=== PATIENT | male | born 1935 | race Caucasian/White ===

== ENCOUNTER 2017-12-31 10:49 | Observation (INO) | payer OTHER, MEDICARE ==
[2017-12-29 12:51] VITALS: Ht 165.1 cm; Wt 72.7 kg
--- NOTE | 2017-12-29 13:27 | PAT Medication Instructions ---
Service Date Dec 29, 2017. Current Home Medication List Acetaminophen (Tylenol), 500 MG PO PRN Amlodipine (Norvasc), 5 MG PO QAM Aspirin (Aspirin Ec), 81 MG PO QAM Glimepiride (Glimepiride), 1 TAB PO QAM Levothyroxine Sodium (Levothyroxine Sodium), 1 TAB PO QAM Lisinopril (Zestril), 20 MG PO QAM Lovastatin (Mevacor), 40 MG PO QPM Metformin Hcl (Glucophage), 1,000 MG PO BID Omeprazole (Prilosec), 20 MG PO QAM Silodosin (Rapaflo), 1 CAP PO HS [Insulin Levemir], 25 UNITS SC HS [Lisinopril Hctz], 1 TAB PO QPM Medication Instructions For Your Scheduled Surgery - Hold the following medications per your surgeon's instructions: Aspirin (Aspirin Ec), 81 MG PO QAM - Hold the following medications the night before surgery: [Lisinopril Hctz], 1 TAB PO QPM - Hold the following medications the morning of surgery: Glimepiride (Glimepiride), 1 TAB PO QAM Metformin Hcl (Glucophage), 1,000 MG PO BID Lisinopril (Zestril), 20 MG PO QAM - Take the following medications the morning of surgery with a sip of water: Acetaminophen (Tylenol), 500 MG PO PRN (if needed, can be taken up to four hours before surgery) Amlodipine (Norvasc), 5 MG PO QAM Omeprazole (Prilosec), 20 MG PO QAM Levothyroxine Sodium (Levothyroxine Sodium), 1 TAB PO QAM - Take the following medications as scheduled the night before surgery: Acetaminophen (Tylenol), 500 MG PO PRN (if needed) Metformin Hcl (Glucophage), 1,000 MG PO BID Silodosin (Rapaflo), 1 CAP PO HS [Insulin Levemir], 25 UNITS SC HS Lovastatin (Mevacor), 40 MG PO QPM If you have any questions please call us at [phone] or [phone] or [phone]
--- NOTE | 2017-12-29 14:11 | DIAGNOSTIC IMAGING REPORT ---
CHEST 2 VIEWS ROUTINE HISTORY: 82 years-old Male PAT preoperative exam. No acute chest complaints. COMPARISON: CT abdomen and pelvis 11/09/2017 TECHNIQUE: PA and lateral views of the chest FINDINGS: Cardiomediastinal and hilar silhouettes are within normal limits. Atherosclerosis of the aorta. Biapical pleural thickening/pleural-parenchymal scarring is noted without pneumothorax, pleural effusion, focal airspace consolidation or overt pulmonary edema. The lungs are hyperinflated with emphysematous changes suggested. Probable calcific granulomas of the lateral right midlung. Degenerative changes are noted within the shoulders and spine. Cholecystectomy clips noted. IMPRESSION: No acute process of the chest. The above report was generated using voice recognition software. It may contain grammatical, syntax or spelling errors. Electronically signed by: Kolby Gómez M.D. 12/29/2017 2:10 PM Dictated Date/Time: 12/29/2017 2:08 PM
[2017-12-29 14:17] LABS: BASO % 0.7 %; BASO ABS # 0.06 K/uL (0-0.2); EOS % 4.9 %; EOS ABS # 0.44 K/uL (0-0.5); HEMATOCRIT 38.1 % (42-52); HEMOGLOBIN 12.6 g/dL (14.0-18.0); IG# 0.04 K/uL (0.00-0.02); LYMPH % 26.8 %; LYMPH ABS # 2.41 K/uL (1.2-3.4); MEAN CELL VOLUME 88.8 fL (80-100); MEAN CORPUSCULAR HEMOGLOBIN 29.4 pg (25-34); MEAN CORPUSCULAR HGB CONC 33.1 g/dl (32-36); MEAN PLATELET VOLUME 10.3 fL (7.4-10.4); MONO % 10.2 %; MONO ABS # 0.92 K/uL (0.11-0.59); NEUT ABS # 5.13 K/uL (1.4-6.5); PLATELET COUNT 240 K/uL (130-400); RED CELL DISTRIBUTION WIDTH CV 13.8 % (11.5-14.5)
[2017-12-29 14:23] LABS: CREATININE 1.32 mg/dl (0.60-1.40); POTASSIUM 3.9 mmol/L (3.5-5.1)
[2017-12-31] VITALS (8 sets, daily range): BP systolic 124–177; BP diastolic 64–85; PULSE 63–78; TEMP 36.4–36.9; O2SAT 95–100
[~2017-12-31] VITALS: Ht 165.1 cm; Wt 72.7 kg
[~2017-12-31 10:49] MED LIST: ACET-1256 PO; AMLO-110 PO; ASPI81TA28 PO; ATROPINE SULFATE 0.1 MG/ML 5ML SYR IV PRN; CIPROFLOXACIN / D5W 400 MG IV SCH; EpHEDrine SULFATE INJ 50 MG/ML AMP IV PRN; GLIM4TAB2 PO; HYDROmorphone INJ 2 MG/ML SYR/VIAL IV PRN; INSULIN LEVEMIR SC; LACTATED RINGER'S 1000ML 1,000 ML IV SCH; LEVO88TA3 PO; LISI-725 PO; LISINOPRIL HCTZ PO; LOVA40TA4 PO; METF-384 PO; ONDANSETRON INJ 2 MG/ML 2 ML VIAL IV PRN; PHENYLEPHRINE 100MCG/ML 5ML SYR IV PRN; PRLSR20 PO; SILO8CAP PO
--- NOTE | 2017-12-31 12:10 | History & Physical Bridge Note ---
H&P Re-Evaluation Bridge Note: I have examined the patient, reviewed the History & Physical and in the interval since the performance of the History & Physical I have noted the following changes of clinical significance: No changes noted
[2017-12-31] MEDS ORDERED: PROPOFOL IV EMULSION 10 MG/ML 20 ML VIAL IV ONE (12:50)
[2017-12-31] MEDS ORDERED: LIDOCAINE HCL 2% 2 ML VIAL (20MG/ML) ONE (12:50)
[2017-12-31] MEDS ORDERED: ONDANSETRON INJ 2 MG/ML 2 ML VIAL ONE (12:50)
[2017-12-31] MEDS ORDERED: MIDAZOLAM HCL 1 MG/ML 2ML VIAL ONE (12:50)
[2017-12-31] MEDS ORDERED: FENTANYL CITRATE INJ 50 MCG/1 ML 2 ML VIAL ONE (12:51)
[2017-12-31] MEDS ORDERED: DEXAMETHASONE SOD INJ 4 MG/ML VIAL ONE (13:20)
[2017-12-31] MEDS ORDERED: Cysto-Conray II 17.2% 250ML BOTTLE ONE (13:25)
[2017-12-31] MEDS ORDERED: WATER, STERILE FOR INJ 10 ML VIAL ONE (13:36)
[2017-12-31] MEDS ORDERED: EpHEDrine SULFATE INJ 50 MG/ML AMP ONE (13:36)
[2017-12-31] MEDS ORDERED: GLYCOPYRROLATE INJ 0.2 MG/ML VIAL ONE (13:56)
[2017-12-31] MEDS ORDERED: NEOSTIGMINE METHYLSULFATE 5 MG/5 ML SYR ONE (13:56)
[2017-12-31] MEDS ORDERED: ROCURONIUM BROMIDE 10 MG/ML 5 ML VIAL IV ONE ×2 (13:56→14:33)
[2017-12-31] MEDS ORDERED: BELLADONNA/OPIUM SUPP 60 MG SUPP PR ONE (14:48)
--- NOTE | 2017-12-31 14:53 | [facility] Post Operative Brief Note ---
Immediate Operative Summary Operative Date Dec 31, 2017. Pre-Operative Diagnosis Multifocal bladder tumors Post-Operative Diagnosis Multifocal bladder tumors Procedure(s) Performed Cystoscopy, Left Retrograde Pyelograpy, Left Ureteral Stent Placement, Transuretheral Resection Prostate, Transuretheral Resection Bladder Tumor, Button Fulguration of Bladder Surgeon Dr. Mayra Chan Golf Cart Attendant Surgeon(s) none Estimated Blood Loss 50 cc Findings Consistent with Post-Op Diagnosis Specimens A: prostate chips B: bladder neck tumor C: posterior bladder tumor D: anterior bladder tumor E: right lateral tumor Drains [address] guadalupe to CBI, 10 cc H2O Anesthesia Type General Complication(s) none Disposition Accompanied Pt To Recover: no Disposition: Recovery Room / PACU
[2017-12-31] MEDS ORDERED: ONDANSETRON INJ 2 MG/ML 2 ML VIAL IV PRN (15:15)
[2017-12-31] MEDS ORDERED: ACETAMINOPHEN 325 MG TAB PO PRN (15:15)
[2017-12-31] MEDS ORDERED: PHENAZOPYRIDINE HCL 200 MG TAB PO PRN (15:15)
[2017-12-31] MEDS ORDERED: OXYCODONE/ACETAMINOPHEN 5-325 TAB PO PRN ×2 (15:15)
[2017-12-31] MEDS ORDERED: HYDROmorphone INJ 1 MG/ML SYR IV PRN ×2 (15:15)
--- NOTE | 2017-12-31 15:31 | [facility] Operative Report ---
Operative Report Operative Date Dec 31, 2017. Pre-Operative Diagnosis Multifocal bladder tumors Post-Operative Diagnosis Multifocal bladder tumors Procedure(s) Performed Cystoscopy, Left Retrograde Pyelograpy, Left Ureteral Stent Placement, Transuretheral Resection Prostate, Transuretheral Resection Bladder Tumor, Button Fulguration of Bladder Surgeon Dr. Mayra Chan Precision Lens Technician Surgeon(s) none Estimated Blood Loss 50 cc Findings Abnormal, papillary mucosa encompassing over one half of the patient's intravesical volume, tumor at the left ureteral orifice fulgurated and left ureteral stent in good position on fluoroscopy, no obvious areas of residual tumor identified. Specimens A: prostate chips B: bladder neck tumor C: posterior bladder tumor D: anterior bladder tumor E: right lateral tumor Drains [address] guadalupe to CBI, 10 cc H2O Anesthesia Type General Complication(s) none Disposition no Recovery Room / PACU Indications 82-year-old male with multifocal bladder tumors consistent with urothelial malignancy who is coming in today for resection of his disease. Intravenous ciprofloxacin was provided for antibiotic coverage and SCDs used for DVT prophylaxis. Please see H&P for further details. Description of Procedure Patient was properly identified and brought into the operative suite after identification of appropriate consent in the chart. General anesthesia with endotracheal intubation was initiated and patient was prepped and draped in standard fashion for this procedure. Full timeout procedure was followed. Rigid cystoscope was introduced into the bladder under direct visualization demonstrating a prostatic urethra with clear evidence of papillary tumor throughout its entire length. Within the bladder tumor was present with the least burden being present on the right-hand side although no aspect of the bladder was spared. Majority of these tumors were noted to be relatively small with sheets of papillary mucosa consistent with urothelial malignancy. Overall well over one half of the bladder was involved if not closer to two thirds. The right-sided ureteral orifice was thankfully spared but the left-sided ureteral orifice was encased in abnormal mucosa. Unfortunately, attempts at placing a stent on this side were hampered by the friable tumor and bleeding from the level of the prostate and bladder. Decision was made to proceed with a TURP prior to attempts at placing a left ureteral stent. Circumferential resection of the abnormal tissue of the prostate was undertaken and prostate chips were flushed into the bladder and then through the scope. These were sent as a separate specimen. Bipolar button was used to fulgurate the prostatic fossa circumferentially for improved hemostasis. Bleeding tumor at the bladder neck was also fulgurated to allow for visualization of the left ureteral orifice. Rigid cystoscope was then reintroduced and the left ureteral orifice was able to be cannulated using an angled sensor tip wire. Open-ended catheter was placed into the distal ureter and retrograde pyelography was performed demonstrating no ureteral dilation, filling defects or other worrisome findings. Sensor tip was advanced to the level of the renal pelvis followed by a 6 [place] multilength ureteral stent with a double coil being present within the bladder and redundant stent within the kidney on fluoroscopy. The cystoscope was removed and resectoscope was reintroduced using a visual obturator. Tumor was resected from maintenance representative areas and sent labeled depending on its area of origin. Some thinning of the bladder wall at several sites of resection was noted without lexi perforation. Patient was paralyzed to avoid the risk of obturator reflex. After this was complete bipolar button was used to fulgurate areas of abnormal mucosa throughout the bladder. Hemostasis was also achieved in areas of prior resection within the prostatic fossa. After lengthy intervention no clearly abnormal visible tumor was residual within the bladder. All areas of abnormal mucosa to the degree possible were felt to be well fulgurated. Bladder was partially distended and resectoscope was removed. 26 [address] Guadalupe catheter was placed with 10 cc of sterile water in balloon and return of light pink urine. CBI was started. Belladonna and opium suppository was provided for additional postoperative analgesia. Anesthesia was reversed patient was transferred to the recovery room in stable condition. Follow-up CARE: Patient will be admitted to the floor for postoperative management and CBI. I attest to the content of the Intraoperative Record and any orders documented therein. Any exceptions are noted below.
[2017-12-31] MEDS ORDERED: PHARMACY GLYCEMIC MGMT CONSULT STA (15:35)
--- NOTE | 2017-12-31 15:44 | Anesthesiology Progress Note ---
Anesthesia Post Op Note Date & Time Dec 31, 2017 at 15:44 Vital Signs Pain Intensity: 0 Vital Signs Past 12 Hours Date Time Temp Pulse Resp B/P (MAP) Pulse Ox O2 Delivery O2 Flow Rate FiO2 12/31/17 15:35 36.2 74 16 160/75 100 Nasal Cannula 2 Oxymask 12/31/17 15:25 74 16 165/68 100 Oxymask 5 12/31/17 15:15 85 16 179/79 100 Oxymask 10 12/31/17 15:09 36.4 92 16 181/81 100 Oxymask 10 12/31/17 11:20 36.7 78 17 124/83 (97) 97 Room Air Notes Mental Status: alert / awake / arousable, participated in evaluation Pt Amnestic to Procedure: Yes Nausea / Vomiting: adequately controlled Pain: adequately controlled Airway Patency, RR, SpO2: stable & adequate BP & HR: stable & adequate Hydration State: stable & adequate Anesthetic Complications: no major complications apparent
[2017-12-31] MEDS ORDERED: PHARMACY GLYCEMIC MGMT CONSULT SCH (15:57)
--- NOTE | 2017-12-31 16:11 | Pharmacy Progress Note ---
Glycemic Control Intl Consult Date of Service Dec 31, 2017. Scope Glycemic Pharmacist consulted by Dr Chan on 12/31/17 for glycemic control and to write orders per [facility] inpatient glycemic control protocol Objective Weight (Kilograms): 72.7 Accuchecks BSG (last 24hrs): Test 12/31/17 11:29 12/31/17 15:25 Bedside Glucose 139 mg/dl (70-99) 125 mg/dl (70-99) Recent Pertinent Medications Outpatient Anti-diabetic Regimen: * Levemir 25 units SQ HS * Metformin 1g PO BID * Amaryl 4mg PO Daily * A1c ordered with AM Labs Risk Factors for Insulin Resistance: * Steroids: Dexamethasone 4mg IV x1 in OR * Recent Surgery: s/p transurethral resection of bladder tumor * Diet:Type 2 DM Assessment & Plan ASSESSMENT: * 82 year old male, s/p transurethral resection of bladder tumor, managed on Levemir and oral agents as outpatient Type 2 diabetic * Oral agents are not recommended for inpatient use d/t drug interactions, changing PO intake, and difficulty titrating for acute hyper/hypoglycemia. ADA recommends re-initiating outpatient oral agents 1-2 days prior to discharge if/ when appropriate if they were held on admission. * Will hold oral agents for admission and utilize SQ basal bolus insulin regimen which is the recommended regimen for inpatient glycemic control. * Due to IV Dexamethasone, will give extra dose of Levemir now and start with tight Novolog parameters and loosen as steroids wear off PLAN FOR INPATIENT GLYCEMIC CONTROL: * Holding outpatient oral diabetes medications * Basal insulin with LEVEMIR * 18 units SQ x 1 dose NOW and * 25 units SQ HS * Correctional Insulin with NOVOLOG per scale ACHS or Q6hrs while NPO and overnight at 0000 and 0400 * Goal Range: Low 120 mg/dL - High 150 mg/dL * Correction Factor: 20 mg/dL/unit * Nutritional / Prandial insulin per carb ratio of 1 unit per 7 grams CHO consumed * Please note that the plan above was derived based on current level of insulin resistance and hospital stress. These recommendations are appropriate for inpatient admission only. Plan of care upon discharge will need to be reassessed to avoid potential outpatient hypo/hyperglycemia. Thank you.
[2017-12-31] MEDS ORDERED: GLUCOSE 40% GEL 15 GM TUBE PO PRN (16:15)
[2017-12-31] MEDS ORDERED: GLUCOSE 10 TABS/TUBE PO PRN (16:15)
[2017-12-31] MEDS ORDERED: GLUCAGON FOR INJ 1 MG VIAL SQ PRN (16:15)
[2017-12-31] MEDS ORDERED: DEXTROSE 50% 50 ML SYR IV PRN (16:15)
[2017-12-31] MEDS ORDERED: INSULIN DETEMIR FLEXPEN/FLEX TOUCH 100 UNITS/ML 3ML SC ONE (16:30)
[2017-12-31] MEDS: LACTATED RINGER'S 1000ML 1,000 ML IV SCH (16:44)
[2017-12-31] MEDS ORDERED: IV FLUIDS COMPLETED PRN (17:15)
--- NOTE | 2017-12-31 18:08 | Progress Note ---
Progress Note Date of Service Dec 31, 2017. Progress Note PM rounds: Patient resting in bed, taking regular diet. Feels well. Urine clear pink on fast CBI - slowed. NAD Good respiratory excursion. S1 S2 Soft, ND, NT A/P 82 yo male POD#0 s/p TURBT, TURP, L stent. Intraop findings reviewed. CBI overnight, labs in AM. Possible DC with guadalupe tomorrow.
[2017-12-31] MEDS: INSULIN ASPART 100 UNITS/ML 3 ML PEN SC SCH ×2 (18:43→20:39)
[2017-12-31] MEDS: CIPROFLOXACIN / D5W 400 MG in PREMIXED IN D5W 0 ML IV SCH (20:21)
[2017-12-31] MEDS: DOCUSATE SODIUM 100 MG CAP PO SCH (20:25)
[2017-12-31] MEDS ORDERED: LOVASTATIN 20 MG TAB PO SCH (21:00)
[2017-12-31] MEDS ORDERED: INSULIN DETEMIR FLEXPEN/FLEX TOUCH 100 UNITS/ML 3ML SC SCH (21:00)
--- NOTE | 2017-12-31 21:43 | DIAGNOSTIC IMAGING REPORT ---
RETROGRADE INCLUDES KUB CLINICAL HISTORY: 82 years-old Male presenting with RETROGRADE. TECHNIQUE: 4 fluoroscopic spot image(s) obtained as part of an intraoperative procedure. COMPARISON: CT from 11/09/2017. FINDINGS/IMPRESSION: A catheter was introduced into the distal left ureter, which was opacified with contrast. Subsequently, a ureteral stent was placed. Please see surgical report for further details. Fluoroscopy dosage (mGy): Not available. Fluoroscopy time: 24 seconds. Number of fluoroscopic spot images: 4. Electronically signed by: Jefe Sanabria M.D. 12/31/2017 9:41 PM Dictated Date/Time: 12/31/2017 9:40 PM
[2018-01-01] MEDS: INSULIN ASPART 100 UNITS/ML 3 ML PEN SC SCH ×4 (00:23→13:59)
[2018-01-01] MEDS: LACTATED RINGER'S 1000ML 1,000 ML IV SCH ×2 (03:07→13:02)
[2018-01-01 03:56] VITALS: BP 132/55; PULSE 66; TEMP 36.7; O2SAT 96
[2018-01-01] MEDS ORDERED: LEVOTHYROXINE 88 MCG TAB PO SCH (06:00)
[2018-01-01 07:17] LABS: BASO % 0.2 %; BASO ABS # 0.02 K/uL (0-0.2); EOS % 0.5 %; EOS ABS # 0.05 K/uL (0-0.5); HEMATOCRIT 37.6 % (42-52); HEMOGLOBIN 12.6 g/dL (14.0-18.0); IG# 0.03 K/uL (0.00-0.02); LYMPH % 16.5 %; LYMPH ABS # 1.83 K/uL (1.2-3.4); MEAN CELL VOLUME 89.1 fL (80-100); MEAN CORPUSCULAR HEMOGLOBIN 29.9 pg (25-34); MEAN CORPUSCULAR HGB CONC 33.5 g/dl (32-36); MEAN PLATELET VOLUME 10.4 fL (7.4-10.4); MONO % 13.4 %; MONO ABS # 1.49 K/uL (0.11-0.59); NEUT % 69.1 %; NEUT ABS # 7.68 K/uL (1.4-6.5); PLATELET COUNT 211 K/uL (130-400); RED CELL DISTRIBUTION WIDTH CV 13.9 % (11.5-14.5); RED CELL DISTRIBUTION WIDTH SD 45.4 fL (36.4-46.3)
[2018-01-01 07:21] VITALS: BP 169/68; PULSE 73; TEMP 36.6; O2SAT 98
[2018-01-01 07:47] LABS: CALCIUM 8.8 mg/dl (8.5-10.1); CREATININE 1.24 mg/dl (0.60-1.40); POTASSIUM 4.1 mmol/L (3.5-5.1)
--- NOTE | 2018-01-01 08:08 | Progress Note ---
Subjective Date of Service: Jan 01, 2018. Subjective Pt evaluation today including: conversation w/ patient, physical exam, chart review, lab review, review of inpatient medication list Pain: Controlled, minimal PO Intake: Damien reg diet Voiding: guadalupe catheter in place (urine light pink with moderate CBI) 82 yo male POD#1 s/p TURBT, TURP. He notes little ambulation yesterday, no complaints or difficulties with guadalupe. AM labs noted, no worrisome findings. Intraop findings reviewed. Review of Systems Constitutional: No fever, No chills Eyes: No worsening of vision ENT: No hearing loss Respiratory: No sputum, No wheezing, No shortness of breath Cardiac: No chest pain Abdomen: No nausea, No vomiting Male : + see HPI, + hematuria Neurologic: No memory loss, No paralysis Psychiatric: No depression symptoms Heme: + abnormal bleeding/bruising Endo: No fatigue Skin: No new/changing skin lesions Objective Vital Signs Date Time Temp Pulse Resp B/P (MAP) Pulse Ox O2 Delivery O2 Flow Rate FiO2 01/01/18 07:30 Room Air 01/01/18 07:21 36.6 73 16 169/68 (101) 98 Room Air 01/01/18 03:56 36.7 66 16 132/55 (80) 96 Room Air 12/31/17 23:55 Room Air 12/31/17 23:00 36.6 66 16 147/71 (96) 97 Room Air 12/31/17 20:32 36.8 70 16 171/73 (105) 98 Room Air 12/31/17 18:53 36.7 69 16 162/75 (104) 96 Room Air 12/31/17 18:07 36.9 71 16 156/67 (96) 95 Room Air 12/31/17 16:55 36.4 63 16 166/71 (102) 100 Nasal Cannula 2.0 12/31/17 16:26 36.4 63 16 177/64 (101) 100 Nasal Cannula 2.0 12/31/17 16:00 Nasal Cannula 2.0 12/31/17 16:00 Nasal Cannula 2.0 12/31/17 15:55 36.5 69 16 165/85 (111) 98 Nasal Cannula 2.0 12/31/17 15:45 71 16 156/69 100 Nasal Cannula 2 Oxymask 3/1/18 15:35 36.2 74 16 160/75 100 Nasal Cannula 2 Oxymask 12/31/17 15:25 74 16 165/68 100 Oxymask 5 12/31/17 15:15 85 16 179/79 100 Oxymask 10 12/31/17 15:09 36.4 92 16 181/81 100 Oxymask 10 12/31/17 11:20 36.7 78 17 124/83 (97) 97 Room Air Physical Exam General Appearance: WD/WN, no apparent distress ENT: normal ENT inspection, hearing grossly normal Neck: supple, no adenopathy Respiratory/Chest: no respiratory distress, no accessory muscle use Cardiovascular: no JVD Abdomen: non tender, soft Extremities: non-tender Neurologic/Psychiatric: alert, oriented x 3 Skin: normal color Laboratory Results Last 24 Hours Test 12/31/17 11:29 12/31/17 15:25 12/31/17 17:17 12/31/17 20:30 Bedside Glucose 139 mg/dl 125 mg/dl 129 mg/dl 206 mg/dl Test 01/01/18 00:03 01/01/18 03:35 01/01/18 06:47 Bedside Glucose 199 mg/dl 166 mg/dl White Blood Count 11.10 K/uL Red Blood Count 4.22 M/uL Hemoglobin 12.6 g/dL Hematocrit 37.6 % Mean Corpuscular Volume 89.1 fL Mean Corpuscular Hemoglobin 29.9 pg Mean Corpuscular Hemoglobin Concent 33.5 g/dl Platelet Count 211 K/uL Mean Platelet Volume 10.4 fL Neutrophils (%) (Auto) 69.1 % Lymphocytes (%) (Auto) 16.5 % Monocytes (%) (Auto) 13.4 % Eosinophils (%) (Auto) 0.5 % Basophils (%) (Auto) 0.2 % Neutrophils # (Auto) 7.68 K/uL Lymphocytes # (Auto) 1.83 K/uL Monocytes # (Auto) 1.49 K/uL Eosinophils # (Auto) 0.05 K/uL Basophils # (Auto) 0.02 K/uL RDW Standard Deviation 45.4 fL RDW Coefficient of Variation 13.9 % Immature Granulocyte % (Auto) 0.3 % Immature Granulocyte # (Auto) 0.03 K/uL Sodium Level 140 mmol/L Potassium Level 4.1 mmol/L Chloride Level 105 mmol/L Carbon Dioxide Level 27 mmol/L Anion Gap 7.0 mmol/L Blood Urea Nitrogen 16 mg/dl Creatinine 1.24 mg/dl Est Creatinine Clear Calc Drug Dose 41.3 ml/min Estimated GFR () 63.2 Estimated GFR (Non- 54.6 BUN/Creatinine Ratio 12.5 Random Glucose 150 mg/dl Calcium Level 8.8 mg/dl Assessment and Plan A/P 82 yo male POD#1 s/p TURP and TURBT. Will increase diet and activity today. Ambulate in halls. CBI stopped - will recheck later. If urine acceptable, will DC home with guadalupe in place. Outpatient TOV, stent removal and pathology discussion at scheduled visit. Limitations reviewed. Discharge planning: home
[2018-01-01 08:13] LABS: HEMOGLOBIN A1C 8.2 % (4.5-5.6)
--- NOTE | 2018-01-01 08:28 | Anesthesiology Progress Note ---
Anesthesia Post Op Note Date & Time Jan 01, 2018 at 08:28 Vital Signs Pain Intensity: 0.0 Vital Signs Past 12 Hours Date Time Temp Pulse Resp B/P (MAP) Pulse Ox O2 Delivery O2 Flow Rate FiO2 01/01/18 07:30 Room Air 01/01/18 07:21 36.6 73 16 169/68 (101) 98 Room Air 01/01/18 03:56 36.7 66 16 132/55 (80) 96 Room Air 12/31/17 23:55 Room Air 12/31/17 23:00 36.6 66 16 147/71 (96) 97 Room Air 12/31/17 20:32 36.8 70 16 171/73 (105) 98 Room Air Notes Mental Status: alert / awake / arousable, participated in evaluation Pt Amnestic to Procedure: Yes Nausea / Vomiting: adequately controlled Pain: adequately controlled Airway Patency, RR, SpO2: stable & adequate BP & HR: stable & adequate Hydration State: stable & adequate Anesthetic Complications: no major complications apparent
[2018-01-01] MEDS ORDERED: LISINOPRIL 20 MG TAB PO SCH (09:00)
[2018-01-01] MEDS ORDERED: AMLODIPINE BESYLATE 5 MG TAB PO SCH (09:00)
[2018-01-01] MEDS: DOCUSATE SODIUM 100 MG CAP PO SCH (09:23)
[2018-01-01] MEDS: CIPROFLOXACIN / D5W 400 MG in PREMIXED IN D5W 0 ML IV SCH (09:24)
--- NOTE | 2018-01-01 10:44 | Pharmacy Progress Note ---
Pharmacy Glycemic Short Note 2 Date of Service Jan 01, 2018. OUTPATIENT ANTIDIABETIC REGIMEN: * Levemir 25 units SQ HS * Metformin 1g PO BID * Amaryl 4mg PO Daily * A1c = 8.2% on 01/01/18 ASSESSMENT: * 82yo T2DM male s/p TURP. Pt with adequate outpatient glycemic control per recent A1c based on age/comorbidities and elements of diabetes care scoring scale. * Tight glycemic control crucial for post-op healing. Recommended to maintain all BSGs <200 mg/dl; ideally target glucose levels ~ 150 mg/dl or below. * Pt is currently receiving SQ basal bolus insulin regimen post-operatively while outpatient oral agents are on hold for inpatient admission. * Pt ordered outpatient dose of basal insulin + supplemental dose to cover longstanding hyperglycemia resulting from dexamethasone given in OR * BSGs over the past 24hrs are: 125, 206, 199, 166, 145 * No changes needed to regimen at this time. Will continue outpatient dosing of basal insulin + Novolog weight based SSI. PLAN FOR INPATIENT GLYCEMIC CONTROL: * Hold outpatient oral diabetes medications * May resume at discharge * Basal insulin * Levemir 25 units SQ HS * Bolus insulin * NovoLog per scale ACHS or Q6hrs while NPO * Goal Range: Low 120 mg/dL - High 150 mg/dL * Correction Factor: 20 mg/dL/unit * Nutritional / Prandial insulin per carb ratio of 1 unit per 7 grams CHO consumed
[2018-01-01] MEDS ORDERED: HYDR-5688 PO (13:01)
[2018-01-01] MEDS ORDERED: DOCU-94 PO (13:01)
[2018-01-01] MEDS ORDERED: CIPR1TAB10 PO (13:01)
[2018-01-01 13:03] VITALS: BP 169/68; PULSE 73; TEMP 36.6; O2SAT 98
--- NOTE | 2018-01-01 13:06 | Discharge Instructions ---
Discharge Instructions Date of Service Jan 01, 2018. Admission Reason for Admission: Bladder Tumor Discharge Discharge Diagnosis / Problem: Bladder tumor Discharge Goals Goal(s): Decrease discomfort Activity Recommendations Activity Limitations: as noted below Lifting Limitations: no more than 10 pounds (x 2 weeks ) Exercise/Sports Limitations: rest today, until after follow-up appointment ( Light activty x 2 weeks. No heavy lifting or exercise. ) Shower/Bathe: no limitations (No tub baths until guadalupe catheter moved. OK to shower. ) Driving or Machine Use: resume 3 days after discharge (Do not drive while taking narcotics. ) . Instructions / Follow-Up Instructions / Follow-Up 1. You may resume taking Aspirin when urine is clear. 2. Follow up as scheduled. Please call the office at [phone] if you need to reschedule for any reason. Current Hospital Diet Patient's current hospital diet: Diabetes Type 2 Diet Discharge Diet Recommended Diet: Regular Diet Procedures Procedures Performed: Cystoscopy, Left Retrograde Pyelograpy, Left Ureteral Stent Placement, Transuretheral Resection Prostate, Transuretheral Resection Bladder Tumor, Button Fulguration of Bladder Pending Studies Studies pending at discharge: yes List of pending studies: bladder and prostate pathology Laboratory Results Hemoglobin A1c Test 01/01/18 06:47 Range/Units Estimated Average Glucose 189 mg/dl Hemoglobin A1c 8.2 H 4.5-5.6 % Medical Emergencies . Who to Call and When: Medical Emergencies: If at any time you feel your situation is an emergency, please call 911 immediately. . Non-Emergent Contact Non-Emergency issues call your: Urologist Call Non-Emergent contact if: temperature is above 101.5, your pain is not controlled, your pain is worsening, your pain is unusual for you, your pain is concerning you, you have any medication questions . . "Provider Documentation" section prepared by Rin Noonan. . [place] Drug Monitoring Program Search Results: patient reviewed within database, no issues identified
== END 2018-01-01 14:08 | disposition home or self-care (01) ==
LOC: C.ACU 10:49 → C.MSW 11:32 → ENRESERV 15:33
PROVIDERS: ADMIT Urology; ATTEND Urology
DX: C67.9 Malignant neoplasm of bladder, unspecified (principal); N40.1 Benign prostatic hyperplasia with lower urinary tract symptoms; N13.8 Other obstructive and reflux uropathy; R31.0 Gross hematuria; J44.9 Chronic obstructive pulmonary disease, unspecified; I10 Essential (primary) hypertension; E11.9 Type 2 diabetes mellitus without complications; Z79.899 Other long term (current) drug therapy; Z90.49 Acquired absence of other specified parts of digestive tract; Z87.891 Personal history of nicotine dependence; Z83.3 Family history of diabetes mellitus; Z82.49 Family history of ischemic heart disease and other diseases of the circulatory system; Z80.9 Family history of malignant neoplasm, unspecified; Z80.0 Family history of malignant neoplasm of digestive organs

== ENCOUNTER 2020-07-30 07:00 | Observation (INO) ==
--- NOTE | 2020-07-20 10:39 | Anesthesiology Consultation ---
Date of Service July 20, 2020 Assessment & Plan Chart Review Chart Review: Acceptable Risk for Surgery and Patient NOT seen in Pre Admission Testing Consults Requested none ASA ASA4 Proposed Anesthesia Anesthesia Type: General History Surgery Operation Date: 07/30/20 09:45 Proposed Procedures p Transurethral Resection of the Prostate - Tae Barcenas, Height/Weight Height: 5 ft 6 in Weight: 68.039 kg Allergies Allergy/AdvReac Type Severity Reaction Status Date / Time Flomax CAPS Allergy Unknown LIGHT Uncoded 07/20/20 10:00 HEADED DIZZY Medications Home Medications Medication Instructions Recorded Confirmed Last Taken finasteride 5 mg tablet 5 mg PO QAM #90 tab 06/27/19 07/20/20 Unknown levothyroxine 175 mcg tablet 88 mcg PO QAM tab 06/27/19 07/20/20 Unknown lisinopril 20 mg tablet 20 mg PO QAM tab 06/27/19 07/20/20 Unknown lovastatin 40 mg tablet 40 mg PO QPM tab 06/27/19 07/20/20 Unknown metformin 1,000 mg tablet 1,000 mg PO BID tab 06/27/19 07/20/20 Unknown omeprazole 20 mg tablet,delayed 20 mg PO QAM tab 06/27/19 07/20/20 Unknown release insulin detemir U-100 [Levemir 25 unit SUBCUT HS 05/31/20 07/20/20 Unknown U-100 Insulin] lisinopril-hydrochlorothiazide 1 tab PO QPM 05/31/20 07/20/20 Unknown canagliflozin [Invokana] 100 mg PO QAM 07/20/20 07/20/20 Unknown Past Medical History Medical History Bladder tumor BPH (benign prostatic hyperplasia) Diabetes mellitus, type 2 IDDM GERD (gastroesophageal reflux disease) Hypertension Hypothyroidism Lung calcification several > this procedure was on hold due to this > saw Dr. Miguel Ángel Marcum in [place] Jul 02, 2020> was cleared for surgery Prostate cancer AND BLADDER Exercise / Class Metabolic Activity III < 4 Walking/Shop/Light housework Past Family History Family History Sister Diabetes Liver cancer Mother Diabetes Hypertension Past Surgical History Surgical History History of cardiac cath 15 YRS AGO-NO STENTS PLACED S/P ankle fusion LEFT S/P cholecystectomy S/P TURP AND TURBT Past Anesthesia History No Hx of Anesthesia Complications and No Family Hx of Anesthesia Complications History of PONV No Hx of PONV and No Hx of Motion Sickness Social History Smoking Status: Former smoker Do You Dip or Chew Tobacco: No Smoking End Date: 15 yrs ago Hx Alcohol Use: No Hx Substance Use: No Testing Electrocardiogram Date: 06/05/20 Findings: + NSR @ (@ 69;w/ premature SVC's) and + RBBB Chest X-Ray Date: 06/05/20 Findings: + NAD, + atherosclerosis of thoracic aorta and + other (C/w emphysema)
[2020-07-25 10:42] LABS: Appearance Urine Clear (Clear); Bacteria Urine Automated Negative (Negative); Bilirubin Urine Negative (Negative); Blood Urine Negative (Negative); Color Urine Yellow; Glucose Urine UA Negative (Negative); Ketones Urine Negative (Negative); Leukocyte Esterase Urine Trace (Negative); Nitrite Urine Negative (Negative); Protein Urine Negative (Negative); RBC Urine Automated 0-4 /hpf (0-4); Specific Gravity Urine 1.022 (1.000-1.030); Urobilinogen Urine Negative (Negative)
[~2020-07-30 07:00] MED LIST changes: -ACET-1256 PO; -AMLO-110 PO; -ASPI81TA28 PO; -ATROPINE SULFATE 0.1 MG/ML 5ML SYR IV PRN; -CIPROFLOXACIN / D5W 400 MG IV SCH; +CIPROFLOXACIN / D5W 400 MG/200 ML BAG IV SCH; -EpHEDrine SULFATE INJ 50 MG/ML AMP IV PRN; -GLIM4TAB2 PO; -HYDROmorphone INJ 2 MG/ML SYR/VIAL IV PRN; -INSULIN LEVEMIR SC; +LACTATED RINGER'S 1,000 ML IV SCH; -LACTATED RINGER'S 1000ML 1,000 ML IV SCH; -LEVO88TA3 PO; -LISI-725 PO; -LISINOPRIL HCTZ PO; -LOVA40TA4 PO; -METF-384 PO; -ONDANSETRON INJ 2 MG/ML 2 ML VIAL IV PRN; -PHENYLEPHRINE 100MCG/ML 5ML SYR IV PRN; -PRLSR20 PO; -SILO8CAP PO
--- NOTE | 2020-07-30 07:10 | History & Physical Report ---
Date of Service July 30, 2020 Assessment & Plan (1) Malignant tumor of urinary bladder: (2) Gross hematuria: (3) BPH with obstruction/lower urinary tract symptoms: Risks and benefits discussed at length for procedure. These include bleeding, infection, injury to surrounding tissues or organs, and risks associated with anesthesia. Patient states understanding and agrees to proceed. Will sign consent and schedule. Severe obstruction with bladder cancer and bothersome issues. Plan for Transurethral Resection of Prostate. History of Present Illness Primary Care Provider: Candelario Erickson DO Patient here for procedure. No changes in medical issues. No major changes in urinary issues. Continued issues and concerns. No change in pain or discomfort. No severe fevers or chills. No chest pain or shortness of breath. Risks and benefits discussed at length for procedure. These include bleeding, infection, injury to surrounding tissues or organs, and risks associated with anesthesia. Patient and/or family states understanding and agrees to proceed. Consent and supporting information completed. Allergies Allergy/AdvReac Type Severity Reaction Status Date / Time Flomax CAPS Allergy Unknown LIGHT Uncoded 07/20/20 10:00 HEADED DIZZY Home Medications Home Medications Medication Instructions Recorded Confirmed Type finasteride 5 mg tablet 5 mg PO QAM #90 tab 06/27/19 07/20/20 History levothyroxine 175 mcg tablet 88 mcg PO QAM tab 06/27/19 07/20/20 History lisinopril 20 mg tablet 20 mg PO QAM tab 06/27/19 07/20/20 History lovastatin 40 mg tablet 40 mg PO QPM tab 06/27/19 07/20/20 History metformin 1,000 mg tablet 1,000 mg PO BID tab 06/27/19 07/20/20 History omeprazole 20 mg tablet,delayed 20 mg PO QAM tab 06/27/19 07/20/20 History release insulin detemir U-100 [Levemir 25 unit SUBCUT HS 05/31/20 07/20/20 History U-100 Insulin] lisinopril-hydrochlorothiazide 1 tab PO QPM 05/31/20 07/20/20 History canagliflozin [Invokana] 100 mg PO QAM 07/20/20 07/20/20 History Past Med/Surg History Medical History Bladder tumor BPH (benign prostatic hyperplasia) Diabetes mellitus, type 2 IDDM GERD (gastroesophageal reflux disease) Hypertension Hypothyroidism Lung calcification several > this procedure was on hold due to this > saw Dr. Miguel Ángel Marcum in [place] Jul 02, 2020> was cleared for surgery Prostate cancer AND BLADDER Surgical History History of cardiac cath 15 YRS AGO-NO STENTS PLACED S/P ankle fusion LEFT S/P cholecystectomy S/P TURP AND TURBT Family History Sister Diabetes Liver cancer Mother Diabetes Hypertension Social History Smoking Status: Former smoker Smoking End Date: 15 yrs ago; Second Hand Exposure: Yes (son); Do You Dip or Chew Tobacco: No; Hx Alcohol Use: No Hx Substance Use: No Preferred Language: Tuvaluan Communication Ability: Effective Veterinary Practice Manager Required: No Beliefs That Will Affect Care: None marital status: Current Living Situation: Spouse and Family current occupational status: retired Other Information That Helps Us Care for You: No Feels Safe at Home: Yes Safety Concerns: Feels Safe At This Time Assistive Devices: Denture - Upper and Glasses Assistive Devices Comment: [place] no aides Review of Systems All systems reviewed & are unremarkable except as noted in HPI & below Physical Exam Physical Exam: General: Alert/Arousable. No Acute illness. . HEENT: Inspection normal. Normal inspection of face. Normal inspection of neck. Psychologic: Normal affect/No change in mentation. Respiratory: No use of accessory muscles. No respiratory changes or exacerbation or changes with tachypnea or dyspnea. Cardiovascular: No tachycardia Skin: [place] and Dry. No new rashes or visible lesions. Abdomen: Normal inspection. No guarding. PG Care Time/CCT Total # of Minutes Spent Total Time Spent with Patient: Total time spent is greater than 50% in coordination of care (as documented) at patient's floor/unit and/or counseling patient: Coding Level of Care Code 65839 Initial Inpt Care Lvl 3 Diagnoses Malignant tumor of urinary bladder C67.9 Gross hematuria R31.0 BPH with obstruction/lower urinary tract symptoms N40.1; N13.8
[2020-07-30] MEDS ORDERED: ePHEDrine sulfate 50 MG/ML AMP IV PRN (08:06)
[2020-07-30] MEDS ORDERED: ONDANSETRON INJ 2 MG/ML 2 ML VIAL IV PRN ×2 (08:06→12:40)
[2020-07-30] MEDS ORDERED: fentaNYL citrate 100 MCG/2 ML VIAL IV PRN (08:06)
[2020-07-30] MEDS ORDERED: ATROPINE SULFATE 0.1 MG/ML 10ML SYR IV PRN (08:06)
[2020-07-30] MEDS ORDERED: fentaNYL citrate 100 MCG/2 ML VIAL ONE (08:57)
[2020-07-30] MEDS ORDERED: LIDOCAINE HCL 2% 2 ML VIAL/AMP(20MG/ML) INFIL ONE (08:57)
[2020-07-30] MEDS ORDERED: PROPOFOL IV EMULSION 10 MG/ML 20 ML VIAL IV ONE ×2 (08:57→11:47)
[2020-07-30] MEDS ORDERED: ONDANSETRON INJ 2 MG/ML 2 ML VIAL ONE (08:57)
[2020-07-30] MEDS ORDERED: ePHEDrine sulfate 50 MG/ML SYR ONE (10:26)
[2020-07-30] MEDS ORDERED: BELLADONNA/OPIUM SUPP 60 MG SUPP PR ONE ×2 (10:36→10:47)
--- NOTE | 2020-07-30 10:41 | Operative Report ---
PG Post Operative Report Pre & Post Diagnosis Operation Date: 07/30/20 08:55 Pre-Op Diagnosis: Benign Prostatic Hyperplasia With Obstruction Post-Op Diagnosis: Benign Prostatic Hyperplasia With Obstruction I identified the patient and participated in the time-out.: Yes Procedure Operation Date: 07/30/20 08:55 Actual Procedures p Transurethral Resection of the Prostate(Not Applicable) - Tae Barcenas, Surgeon Tae Barcenas, II, DO Flaker Tender None Estimated Blood Loss 5 Findings Consistent with Post-Op Diagnosis Large Prostate with obstruction due to regrowth. Specimens Prostate adenoma. Drains [address] 24Fr Catheter Anesthesia Type General Complications none Disposition Disposition: Recovery Room Indications Patient with obstruction due to prostate enlargement. Risks and benefits discussed at length. Description of Procedure Patient was consented and brought back to the operating room. Patient was placed under anesthesia in the supine position and moved to the dorsal lithotomy position. Patient was prepped and draped in the regular sterile fashion. A time out was completed. A 30degree Cystoscope was placed into the bladder and the entire bladder was examined. The UO's were identified as well as the bladder neck, trigone, dome, and the other important landmarks. The prostatic urethra and large lobes/adenoma was assessed and the veru and bladder neck identified and area/size was assessed. The resection scope was placed and the fine bipolar loop was selected. Starting at the 5 and 7 o'clock positions, a channel was created from bladder neck to the veru. Then from 1 and 11 o'clock the prostate was resected to the channel. A large amount of regrowth was noted and resected. The Specimen was removed and sent for analysis. The resection bed and any bleeding areas were fulgurated/cauterized and the entire area inspected. All bleeding was controlled. The bladder was inspected a final time. The bladder was emptied and irrigated. All specimen and debris was removed. The scope was removed with the bladder partially full. A catheter was placed and balloon elevated. This was easily irrigated. Continuous irrigation was started. The patient was cleaned, aroused from anesthesia, and transferred to the pacu in stable condition having tolerated the procedure well with no complications. I was present and participated in all aspects of the procedure. The patient will be monitored in the PACU until transferred. I attest to the content of the Intraoperative Record and any orders documented therein. Any exceptions are noted below.
[2020-07-30] MEDS ORDERED: BELLADONNA/OPIUM SUPP 60 MG SUPP PR PRN (12:40)
[2020-07-30] MEDS ORDERED: OXYCODONE HCL IR 5 MG TAB (IMMEDIATE RELEASE) PO PRN (12:40)
[2020-07-30] MEDS ORDERED: MoRPHine SULFATE 4 MG/ML 1 ML CARP\\VIAL IV PRN (12:40)
[2020-07-30 13:20] LABS: Basophils # (auto) 0.02 K/uL (0-0.2); Basophils % (auto) 0.2 %; Eosinophils # (auto) 0.31 K/uL (0-0.5); Eosinophils % (auto) 3.6 %; Hematocrit (blood only) 36.5 % (42-52); Hemoglobin 11.8 g/dL (14.0-18.0); Immature Granulocytes # (auto) 0.03 K/uL (0.00-0.02); Immature Granulocytes % (auto) 0.3 %; Lymphocytes # (auto) 1.45 K/uL (1.2-3.4); Lymphocytes % (auto) 16.6 %; Mean Corpuscular Hemoglobin 28.9 pg (25-34); Mean Corpuscular Hgb Conc 32.3 g/dL (32-36); Mean Corpuscular Volume 89.2 fL (80-100); Mean Platelet Volume 10.1 fL (7.4-10.4); Monocytes # (auto) 0.85 K/uL (0.11-0.59); Monocytes % (auto) 9.7 %; Neutrophils # (auto) 6.07 K/uL (1.4-6.5); Neutrophils % (auto) 69.6 %; Platelet Count 187 K/uL (130-400); RDW Coefficient of Variation 12.8 % (11.5-14.5); RDW Standard Deviation 41.4 fL (36.4-46.3); Red Blood Count 4.09 M/uL (4.7-6.1); White Blood Count 8.73 K/uL (4.8-10.8)
[2020-07-30] MEDS: DOCUSATE SODIUM 100 MG CAP PO SCH ×2 (13:29→20:21)
[2020-07-30] MEDS: FINASTERIDE 5 MG TAB PO SCH (13:29)
[2020-07-30] MEDS: SODIUM CHLORIDE 0.9% 1000ML 1,000 ML IV SCH (13:29)
[2020-07-30] MEDS: lisinopriL 20 MG TAB PO SCH (13:30)
[2020-07-30] MEDS: PANTOprazole 40 MG TAB PO SCH (13:30)
[2020-07-30 13:43] LABS: Albumin Level 2.7 gm/dl (3.4-5.0); BUN Creatinine Ratio 14.3 (10-20); Calcium 7.4 mg/dl (8.5-10.1); Creatinine Clr Calc Pharmacy 46.8 ml/min; Est GFR (African American) 73.2; Est GFR (Non-African American) 63.1; Potassium 4.1 mmol/L (3.5-5.1)
[2020-07-30 13:45] LABS: Albumin Globulin Ratio 0.9 (0.9-2); Bilirubin,Total 0.5 mg/dl (0.2-1); Globulin 2.9 gm/dl (2.5-4.0); Total Protein 5.6 gm/dl (6.4-8.2)
--- NOTE | 2020-07-30 15:56 | Anesthesiology Progress Note ---
Date of Service July 30, 2020 Anesthesia Post Procedure Vital Signs Vital Signs: Temp Pulse Pulse Pulse Resp BP BP 07/30/20 14:56 36.3 C L 76 16 158/69 H 07/30/20 13:40 73 07/30/20 12:40 37.0 C 73 16 148/83 H 07/30/20 12:05 68 16 128/61 07/30/20 11:55 64 16 127/70 07/30/20 11:45 68 16 151/66 H 07/30/20 11:35 36.4 C L 67 16 134/62 07/30/20 11:25 36.4 C L 70 16 145/56 H 07/30/20 11:15 74 16 143/74 H 07/30/20 11:05 74 16 135/63 07/30/20 10:57 36.4 C L 81 16 167/70 H 07/30/20 07:29 36.5 C 83 20 176/84 H Pulse Ox 07/30/20 14:56 96 07/30/20 13:40 07/30/20 12:40 93 07/30/20 12:05 95 07/30/20 11:55 95 07/30/20 11:45 95 07/30/20 11:35 95 07/30/20 11:25 95 07/30/20 11:15 100 07/30/20 11:05 100 07/30/20 10:57 100 07/30/20 07:29 98 Transfer of Care Handoff Completed per policy Notes Mental Status: alert / awake / arousable and participated in evaluation Patient Amnestic to Procedure: Yes Nausea / Vomiting: adequately controlled Pain: adequately controlled Airway Patency, RR, SpO2: stable & adequate BP & HR: stable & adequate Hydration State: stable & adequate Anesthetic Complications: no major complications apparent and Pt Satisfied with anesthetic care
[2020-07-30] MEDS ORDERED: PHARMACY GLYCEMIC MGMT CONSULT PRN (16:12)
[2020-07-30] MEDS: CEFAZOLIN 2000MG 2,000 MG/15 ML SYR IV SCH ×2 (16:29→22:23)
[2020-07-30] MEDS ORDERED: GLUCAGON FOR INJ 1 MG VIAL IM PRN (16:30)
[2020-07-30] MEDS ORDERED: DEXTROSE 50% 50 ML SYRINGE IV PRN (16:30)
[2020-07-30] MEDS ORDERED: GLUCOSE 40% GEL 15 GM TUBE PO PRN (16:30)
[2020-07-30] MEDS ORDERED: GLUCOSE 10 TABS/TUBE PO PRN (16:30)
[2020-07-30] MEDS ORDERED: CARBOHYDRATES FOR HYPOGLYCEMIA PO PRN (16:30)
--- NOTE | 2020-07-30 17:17 | Hospitalist Consultation ---
Date of Consultation July 30, 2020 Assessment & Plan (1) Post-operative state: s/p TURP 07/30 Monitor for acute blood loss Pain control, dvt proph per primary (2) Hypertension: Continue home lisinopril-hctz (3) Hyperlipidemia: Continue home lovastatin (4) Diabetes mellitus: Last A1c 9.1 in June consult pharmacy for glycemic management hold home metformin while inpatient (5) GERD (gastroesophageal reflux disease): Continue home ppi (6) Hypothyroidism: Continue home levothyroxine Supervising Physician Co-Signing Physician Notes Patient seen and examined with Trang MAX. I agree with her exam findings, review of systems, assessment and plan. I personally reviewed the lab work and imaging as well. patient is doing well after TURP, urine is ojeda colored but no gross hematuria in guadalupe vitals stable, lab work is stable reviewed medical history, talked with him about poorly controlled diabetes he says that he does not really care too much does not check his sugars regularly - BPH, s/p TURP: management per urology, likely home on 07/31 - DM type II: on Metformin, will utilize Novolog SS while here recommend follow up with PCP - HTN, dyslipidemia: chronic issues, stable Medicine will sign off, stable for discharge on 07/31, will defer to urology History of Present Illness Attending Physician: Tae Barcenas, II, DO History of Present Illness Mr. Perdomo is post TURP today. He has no complaints Allergies Allergy/AdvReac Type Severity Reaction Status Date / Time Flomax CAPS Allergy Unknown LIGHT Uncoded 07/30/20 07:37 HEADED DIZZY Home Medications Home Medications Medication Instructions Recorded Confirmed Type finasteride 5 mg tablet 5 mg PO QAM #90 tab 06/27/19 07/30/20 History levothyroxine 175 mcg tablet 88 mcg PO QAM tab 06/27/19 07/30/20 History lisinopril 20 mg tablet 20 mg PO QAM tab 06/27/19 07/30/20 History lovastatin 40 mg tablet 40 mg PO QPM tab 06/27/19 07/30/20 History metformin 1,000 mg tablet 1,000 mg PO BID tab 06/27/19 07/30/20 History omeprazole 20 mg tablet,delayed 20 mg PO QAM tab 06/27/19 07/30/20 History release insulin detemir U-100 [Levemir 25 unit SUBCUT HS 05/31/20 07/30/20 History U-100 Insulin] lisinopril-hydrochlorothiazide 1 tab PO QPM 05/31/20 07/30/20 History Patient History Medical History (Updated 07/30/20 @ 17:24 by MANSOOR David) Bladder tumor BPH (benign prostatic hyperplasia) Diabetes mellitus, type 2 IDDM GERD (gastroesophageal reflux disease) Hypertension Hypothyroidism Lung calcification several > this procedure was on hold due to this > saw Dr. Miguel Ángel aMrcum in [place] Jul 02, 2020> was cleared for surgery Prostate cancer AND BLADDER Surgical History (Updated 07/30/20 @ 17:16 by MANSOOR David) History of cardiac cath 15 YRS AGO-NO STENTS PLACED S/P ankle fusion LEFT S/P cholecystectomy S/P TURP AND TURBT Family History Sister Diabetes Liver cancer Mother Diabetes Hypertension Social History Smoking Status: Former smoker Smoking End Date: 15 yrs ago; Second Hand Exposure: Yes (son); Do You Dip or Chew Tobacco: No; Hx Alcohol Use: No Hx Substance Use: No Preferred Language: Cypriot Communication Ability: Effective Medical Radiation Dosimetrist Required: No Beliefs That Will Affect Care: None marital status: Current Living Situation: Spouse and Family current occupational status: retired Other Information That Helps Us Care for You: No Feels Safe at Home: Yes Safety Concerns: Feels Safe At This Time Assistive Devices: None Assistive Devices Comment: [place] no aides Review of Systems Constitutional: no fever, no chills and no body aches Cardiovascular: no chest pain, no dyspnea at rest and no palpitations Gastrointestinal: no abdominal pain, no nausea and no vomiting Genitourinary: no dysuria Musculoskeletal: no back pain and no joint pain Integumentary: no rash Physical Exam Physical Exam: General: no distress Eyes: normal inspection, PERLL Respiratory: chest non tender, clear to auscultation, normal breath sounds, no respiratory distress, no accessory muscle use Cardiac: regular rate and rhythm, no rub or gallop, no murmur, no edema, no jvd GI/: active bowel sounds, no abd pain or tenderness, soft, non distended Extremities: normal range of motion, normal strength, non tender Neuro/Psych: alert and oriented x 3, normal mood and affect Skin: normal color, dry Results & Data Results & Data ([facility]) Vital Signs (Past 12 Hours) Vital Signs Temp Pulse Pulse Pulse Resp BP BP 07/30/20 14:56 36.3 C L 76 16 158/69 H 07/30/20 13:40 73 07/30/20 12:40 37.0 C 73 16 148/83 H 07/30/20 12:05 68 16 128/61 07/30/20 11:55 64 16 127/70 07/30/20 11:45 68 16 151/66 H 07/30/20 11:35 36.4 C L 67 16 134/62 07/30/20 11:25 36.4 C L 70 16 145/56 H 07/30/20 11:15 74 16 143/74 H 07/30/20 11:05 74 16 135/63 07/30/20 10:57 36.4 C L 81 16 167/70 H 07/30/20 07:29 36.5 C 83 20 176/84 H Pulse Ox 07/30/20 14:56 96 07/30/20 13:40 07/30/20 12:40 93 07/30/20 12:05 95 07/30/20 11:55 95 07/30/20 11:45 95 07/30/20 11:35 95 07/30/20 11:25 95 07/30/20 11:15 100 07/30/20 11:05 100 07/30/20 10:57 100 07/30/20 07:29 98 PG Care Time/CCT Total # of Minutes Spent Total Time Spent with Patient: Total time spent is greater than 50% in coordination of care (as documented) at patient's floor/unit and/or counseling patient: Coding Level of Care Code 39194 Inpt Consult Level 4 Diagnoses Post-operative state Z98.890 Hypertension I10 Hyperlipidemia E78.5 Diabetes mellitus E11.9 GERD (gastroesophageal reflux disease) K21.9 Hypothyroidism E03.9
[2020-07-30] MEDS: INSULIN ASPART 100 UNITS/ML 3 ML PEN SC SCH ×2 (17:29→20:24)
[2020-07-30] MEDS ORDERED: LOVASTATIN 20 MG TAB PO SCH (21:00)
[2020-07-30] MEDS ORDERED: INSULIN DETEMIR FLEXPEN/FLEX TOUCH 100 UNITS/ML 3ML SC SCH (21:00)
[2020-07-30] MEDS ORDERED: LISINOPRIL/HCTZ 20/25MG 1 TAB PO SCH (21:00)
[2020-07-31] MEDS: SODIUM CHLORIDE 0.9% 1000ML 1,000 ML IV SCH (02:38)
[2020-07-31] MEDS ORDERED: LEVOTHYROXINE SODIUM 88 MCG TABLET PO SCH (06:30)
[2020-07-31] MEDS: CEFAZOLIN 2000MG 2,000 MG/15 ML SYR IV SCH (06:32)
--- NOTE | 2020-07-31 08:16 | Urology Progress Note ---
Date of Service July 31, 2020 Assessment & Plan (1) BPH with obstruction/lower urinary tract symptoms: (2) Gross hematuria: 85 year-old male patient POD #1 transurethral resection of the prostate with Dr. Barcenas on 07/30/20. -Patient clinically progressing as expected. -Afebrile, labs pending. -Encourage ambulation, continue regular diet. -Will clamp CBI now, spoke with nursing regarding close monitoring. -Plan to reassess later today, if doing well, likely discharge home. -Patient in agreement with plan. Admission and Anticipated Discharge Date Admission Date: July 30, 2020 Subjective 85 year-old male patient POD #1 transurethral resection of the prostate with Dr. Barcenas on 07/30/20. Patient feeling well this morning, offers no complaints. He is tolerating regular diet. No nausea or vomiting. Was able to get out of bed once last evening, no dizziness or lightheadedness. Denies flank or abdominal pain. Tolerating guadalupe catheter, CBI running with clear, slightly pink-tinged urine. Denies fevers or chills. He is anxious to go home today. Chart review: Afebrile Labs pending today. Denies additional urologic concerns today. Review of Systems Constitutional: as per Subjective / HPI; no fever and no chills Gastrointestinal: as per Subjective / HPI; no nausea and no vomiting Genitourinary: + as per Subjective / HPI Physical Exam Constitutional: well developed and well nourished; no acute distress and not ill appearing Respiratory: normal respiratory effort and able to speak in complete sentences; no respiratory distress and no audible wheezes Cardiovascular: Extremities: no edema Gastrointestinal (Abdomen): Inspection/Auscultation: abdomen normal to inspection; abdomen not distended Percussion/Palpation: abdomen soft; abdomen nontender and no guarding Psychiatric: Orientation: alert, oriented x 3 and cooperative Affect: euthymic affect Genitourinary: CBI running, guadalupe catheter draining clear, slightly pink tinged urine. Results & Data ([facility]) Vital Signs (Past 12 Hours) Vital Signs Temp Pulse Pulse Resp BP BP Pulse Ox 07/31/20 07:10 36.5 C 87 18 121/81 92 07/31/20 03:00 36.8 C 83 20 123/70 92 07/30/20 23:34 78 07/30/20 23:33 36.6 C 80 20 152/70 H 92 PG Care Time/CCT Total # of Minutes Spent Total Time Spent with Patient: Total time spent is greater than 50% in coordination of care (as documented) at patient's floor/unit and/or counseling patient: Coding Level of Care Code None Diagnoses BPH with obstruction/lower urinary tract symptoms N40.1; N13.8 Gross hematuria R31.0
--- NOTE | 2020-07-31 08:17 | Anesthesiology Progress Note ---
Date of Service July 31, 2020 Anesthesia Post Procedure Vital Signs Vital Signs: Temp Pulse Pulse Pulse Resp BP BP 07/31/20 07:10 36.5 C 87 18 121/81 07/31/20 03:00 36.8 C 83 20 123/70 07/30/20 23:34 78 07/30/20 23:33 36.6 C 80 20 152/70 H 07/30/20 19:17 37.0 C 80 18 129/61 07/30/20 18:52 64 07/30/20 14:56 36.3 C L 76 16 158/69 H 07/30/20 13:40 73 07/30/20 12:40 37.0 C 73 16 148/83 H 07/30/20 12:05 68 16 128/61 07/30/20 11:55 64 16 127/70 07/30/20 11:45 68 16 151/66 H 07/30/20 11:35 36.4 C L 67 16 134/62 07/30/20 11:25 36.4 C L 70 16 145/56 H 07/30/20 11:15 74 16 143/74 H 07/30/20 11:05 74 16 135/63 07/30/20 10:57 36.4 C L 81 16 167/70 H Pulse Ox 07/31/20 07:10 92 07/31/20 03:00 92 07/30/20 23:34 07/30/20 23:33 92 07/30/20 19:17 95 07/30/20 18:52 07/30/20 14:56 96 07/30/20 13:40 07/30/20 12:40 93 07/30/20 12:05 95 07/30/20 11:55 95 07/30/20 11:45 95 07/30/20 11:35 95 07/30/20 11:25 95 07/30/20 11:15 100 07/30/20 11:05 100 07/30/20 10:57 100 Pain Intensity Groin: Pain Intensity: 2 Notes Mental Status: alert / awake / arousable and participated in evaluation Nausea / Vomiting: adequately controlled Pain: adequately controlled Airway Patency, RR, SpO2: stable & adequate BP & HR: stable & adequate Hydration State: stable & adequate
[2020-07-31 08:21] LABS: Hematocrit (blood only) 34.3 % (42-52); Hemoglobin 11.5 g/dL (14.0-18.0); Mean Corpuscular Hemoglobin 29.8 pg (25-34); Mean Corpuscular Hgb Conc 33.5 g/dL (32-36); Mean Corpuscular Volume 88.9 fL (80-100); Mean Platelet Volume 9.8 fL (7.4-10.4); Platelet Count 169 K/uL (130-400); RDW Standard Deviation 42.1 fL (36.4-46.3); Red Blood Count 3.86 M/uL (4.7-6.1); White Blood Count 11.13 K/uL (4.8-10.8)
[2020-07-31] MEDS: DOCUSATE SODIUM 100 MG CAP PO SCH (08:43)
[2020-07-31] MEDS: lisinopriL 20 MG TAB PO SCH (08:43)
[2020-07-31] MEDS: PANTOprazole 40 MG TAB PO SCH (08:43)
[2020-07-31] MEDS: FINASTERIDE 5 MG TAB PO SCH (08:43)
[2020-07-31 08:55] LABS: BUN Creatinine Ratio 8.6 (10-20); Calcium 8.2 mg/dl (8.5-10.1); Est GFR (African American) 56.9; Est GFR (Non-African American) 49.1; Potassium 4.1 mmol/L (3.5-5.1)
[2020-07-31] MEDS: INSULIN ASPART 100 UNITS/ML 3 ML PEN SC SCH ×2 (08:58→12:09)
[2020-07-31] MEDS ORDERED: INSULIN DETEMIR FLEXPEN/FLEX TOUCH 100 UNITS/ML 3ML SC ONE ×2 (09:00→21:00)
--- NOTE | 2020-07-31 10:57 | Hospitalist Progress Note ---
Date of Service July 31, 2020 Assessment & Plan (1) Post-operative state: s/p TURP 07/30 Hgb stable Pain control, dvt proph per primary (2) Hypertension: Continue home lisinopril-hctz (3) Hyperlipidemia: Continue home lovastatin (4) Diabetes mellitus: Last A1c 9.1 in June consulted pharmacy for glycemic management hold home metformin while inpatient Patient should follow with his pcp to better control his blood sugars. (5) GERD (gastroesophageal reflux disease): Continue home ppi (6) Hypothyroidism: Continue home levothyroxine (7) Elevated AST (SGOT): Marginally elevated at 45. No RUQ symptoms, bili is normal. Patient should follow up with pcp who may want to repeat labwork Thank you for involving us in the care of this patient, medicine will sign off at this time. Please call with any questions or concerns Admission and Anticipated Discharge Date Admission Date: July 30, 2020 Subjective Mr. Perdomo feels well today. No complaints. Draining ojeda colored urine into his Zarate bag. Physical Exam Physical Exam: General: no distress Eyes: normal inspection, PERLL Respiratory: chest non tender, clear to auscultation, normal breath sounds, no respiratory distress, no accessory muscle use Cardiac: regular rate and rhythm, no rub or gallop, no murmur, no edema, no jvd GI/: active bowel sounds, no abd pain or tenderness, soft, non distended Extremities: normal range of motion, normal strength, non tender Neuro/Psych: alert and oriented x 3, normal mood and affect Skin: normal color, dry Results & Data Results & Data ([facility]) Vital Signs (Past 12 Hours) Vital Signs Temp Pulse Pulse Resp BP BP Pulse Ox 07/31/20 07:10 36.5 C 87 18 121/81 92 07/31/20 03:00 36.8 C 83 20 123/70 92 07/30/20 23:34 78 07/30/20 23:33 36.6 C 80 20 152/70 H 92 PG Care Time/CCT Total # of Minutes Spent Total Time Spent with Patient: Total time spent is greater than 50% in coordination of care (as documented) at patient's floor/unit and/or counseling patient: Coding Level of Care Code 72139 Subseq Hosp Care Lvl 2 Diagnoses Post-operative state Z98.890 Hypertension I10 Hyperlipidemia E78.5 Diabetes mellitus E11.9 GERD (gastroesophageal reflux disease) K21.9 Hypothyroidism E03.9 Elevated AST (SGOT) R74.0
--- NOTE | 2020-07-31 11:58 | Pharmacy Report ---
Glycemic Control Consultation - Date of Service July 31, 2020 - Scope Scope: Glycemic Pharmacist consulted for glycemic control and to write orders per [facility] inpatient glycemic control protocol. - Objective Weight: 72.3 kg Accuchecks BSG (last 24hrs): 07/30/20 07/30/20 07/30/20 13:07 16:40 20:09 Glucose 119 H POC Glucose 129 H 209 H 07/31/20 07/31/20 07/31/20 07:58 08:47 11:29 Glucose 206 H POC Glucose 284 H 252 H Laboratory Data (last 24hrs): 07/30/20 07/31/20 13:07 07:58 Potassium 4.1 4.1 Carbon Dioxide 30 25 Anion Gap 2.0 L 7.0 Creatinine 1.08 1.33 Est Cr Clr Drug Dosing 46.8 38.0 - Recent Pertinent Medications Outpatient Anti-diabetic Regimen: * Levemir 25 units SC HS * Metformin * A1c = 9.1 % on 06/05/20 The patient is currently receiving: * Basal insulin: Levemir 25 units every HS hours * Correctional Insulin: Novolog Correction per scale ACHS Goal Range: Low 11- mg/dL - High 140 mg/dL Correction Factor: 35 mg/dL/unit * Prandial insulin: Per carb ratio of 1 unit per 11 grams CHO consumed * Oral Agents: On hold Risk Factors for Insulin Resistance: * Recent Surgery: POD 1 s/p TURP * Diet: T2DM - Assessment & Plan Assessment & Plan: ASSESSMENT: * 85 yo M with T2DM admitted w BPH w obstruction and is now s/p TURP * AM fasting BSG elevated today >200 mg/dL despite receiving full home dose last night. Will give small supplemental dose this AM and continue with larger dose qPM to help with eventual transition back to outpatient schedule * Lunch BSG also >250 mg/dL today - will tighten Novolog parameters PLAN FOR INPATIENT GLYCEMIC CONTROL: * Holding outpatient oral diabetes medications * Basal insulin * Levemir 10 units SQ x1 this AM then 15-25 units HS depending on BSG * Bolus insulin * NovoLog per scale ACHS or Q6hrs while NPO * Goal Range: Low 110 mg/dL - High 140 mg/dL * Correction Factor: 30 mg/dL/unit * Nutritional / Prandial insulin per carb ratio of 1 unit per 9 grams CHO consumed * Please note that the plan above was derived based on current level of insulin resistance and hospital stress. These recommendations are appropriate for inpatient admission only. Plan of care upon discharge will need to be reassessed to avoid potential outpatient hypo/hyperglycemia. Thank you.
--- NOTE | 2020-08-02 07:20 | Discharge Summary ---
Date of Service August 02, 2020 Admission HPI Per Admitting Provider Patient here for procedure. No changes in medical issues. No major changes in urinary issues. Continued issues and concerns. No change in pain or discomfort. No severe fevers or chills. No chest pain or shortness of breath. Risks and benefits discussed at length for procedure. These include bleeding, infection, injury to surrounding tissues or organs, and risks associated with anesthesia. Patient and/or family states understanding and agrees to proceed. Consent and supporting information completed. Admission Exam Per Admitting Provider See H&P Principal Diagnosis BPH with obstruction Discharge Exam General: Alert in no acute distress. HEENT: Normocephalic Atraumatic. Inspection normal. Psychologic: Normal affect. Skin: [place] [address] [place] and Dry. No rashes or visible lesions. Abdomen: Soft Non-distended. No rebound or guarding. Discharge Data Allergies Allergy/AdvReac Type Severity Reaction Status Date / Time Flomax CAPS Allergy Unknown LIGHT Uncoded 07/30/20 07:37 HEADED DIZZY Consultations 07/30/20 12:40 Consult Hospitalist Routine Procedures Performed Operation Date: 07/30/20 08:55 Actual Procedures p Transurethral Resection of the Prostate(Not Applicable) - Tae Barcenas, DO Hospital Course (1) BPH with obstruction/lower urinary tract symptoms: Risks and benefits discussed at length for procedure. These include bleeding, infection, injury to surrounding tissues or organs, and risks associated with anesthesia. Patient states understanding and agrees to proceed. Will sign consent and schedule. Severe obstruction with bladder cancer and bothersome issues. Plan for Transurethral Resection of Prostate. (2) Gross hematuria: 85 year-old male patient POD #1 transurethral resection of the prostate with Dr. Barcenas on 07/30/20. -Patient clinically progressing as expected. -Afebrile, labs pending. -Encourage ambulation, continue regular diet. -Will clamp CBI now, spoke with nursing regarding close monitoring. -Plan to reassess later today, if doing well, likely discharge home. -Patient in agreement with plan. Total Time Total Time Spent Total Time Spent (In Minutes): 10 minutes Total Time Includes: Examination of the Patient, Discharge Planning, Medication Reconciliation and Communication With Other Providers Discharge Plan Discharge Items Patient Disposition: Home - Self-Care Reason For Visit: BPH With Obstruction Discharge Diagnosis: BPH with obstruction Activity: Per Instructions section Lifting: No more than 10 pounds Bathing Comment: No bathing, okay to shower tomorrow. Sexual Activity: Wait until after follow-up appointment Exercise/Sports: Wait until after follow-up appointment Driving/Machine Use: Do not drive while on narcotic pain medication Non-emergency contact: Surgeon and Urologist Call non-emergency contact if: you have any medication questions, your pain is not controlled, your pain is unusual for you and your temperature is above 101 Follow-up/Referrals: Candelario Erickson, [Primary Care Provider] - Diet: Carb Consistent or DM2 Addtl Attending Provider Instructions: Please take all medications as prescribed and keep all follow-ups as scheduled. An antibiotic was called into your pharmacy. Please take this as directed. Please call our office at [phone] with any questions, concerns or need to reschedule appointments for any reason. We are happy to assist you. We will be in contact with you to schedule your follow-up visits. Tips for your recovery at home: Dont be alarmed by brownish or reddish blood or clots in your urine. This is a result of the procedure. This may occur off and on for weeks to months after the procedure but should continue to improve. Drink plenty of fluids during the day (enough to keep your urine very light colored). This will help keep a healthy flow of urine. Do not lift >25 lbs until your followup Avoid constipation. Please use a stool softener (Colace) for the first two weeks after your procedure Be sure to finish the antibiotics as prescribed. If you go home with a catheter, please wash tubing where it enters your body twice daily with mild soap (Dove or Dial). Once your catheter is removed, expect some blood in your urine and some burning when you urinate. You should have an appointment to have this removed, if you do not please call our office to ravinder osorio. When to call [facility] at [phone]: Your urine contains heavy blood clots You are constantly leaking urine Fever of 101F or higher, chills, nausea, or vomiting Your pain is not relieved with medication Pending Studies at Discharge: Yes Studies:: Pathology Stand-Alone Forms: My [employer], Smoking Cessation Medications and DC Order Prescriptions: New docusate sodium [Colace] 100 mg capsule 100 mg PO BID Qty: 60 RF: 0 ciprofloxacin HCl 250 mg tablet 250 mg PO BID 7 Days Qty: 14 RF: 0 Continued omeprazole 20 mg tablet,delayed release (DR/EC) 20 mg PO QAM RF: 0 metformin 1,000 mg tablet 1,000 mg PO BID RF: 0 lovastatin 40 mg tablet 40 mg PO QPM RF: 0 lisinopril 20 mg tablet 20 mg PO QAM RF: 0 levothyroxine 175 mcg tablet 88 mcg PO QAM RF: 0 lisinopril-hydrochlorothiazide 20-25 mg Tablet 1 tab PO QPM RF: 0 Levemir U-100 Insulin 100 unit/mL Solution 25 unit SUBCUT HS RF: 0 Discontinued finasteride 5 mg tablet 5 mg PO QAM Qty: 90 RF: 0 Discharge Orders: Discharge Order (Routine); Ordered 07/31/20 Ordered By: Joann Hemphill/Other Patient Handouts: Emptying and Cleaning Your ..., Indwelling Urinary Catheter Dc, Discharge Instructions Caring for ... Admission Data Admit Date/Time: 07/30/20 11:13 Attending Provider: Tae Barcenas Admit Provider: Tae Barcenas Primary Care Provider: Candelario Erickson Other Providers: Linda Burton ; Harvey Aviles ; Patrice Frank ; Mary Ann Ellis ; Clarence Sam ; Nba Hammonds ; Julián Lima ; Mayra Elizalde ; Radha Blair ; Trisha Alvares ; Leroy Martini ; Ratna Griggs ; Keke Morgan ; Lance Chan ; Loki Hanson ; Edgar Castillo ; Trang Davies ; Ga Stern ; Kendell Albright ; Harvey Garcia ; Lawson Diaz ; Chelsea Sandoval ; Abdias Sandoval ; Collin Mccartney ; Nikolai Bruno ; Herman Navarrete ; Balaji Wiggins ; Matthias Atwood Other Interventions: Discharge Summary Assessment (RN) Last Done: 07/31/20 13:33 Coding Level of Care Code D/C Day Management <30 mins Diagnoses BPH with obstruction/lower urinary tract symptoms N40.1; N13.8 Gross hematuria R31.0
== END 2020-07-31 15:35 | disposition home or self-care (01) ==
LOC: 2N 07:00 → ASU 07:00